=== PATIENT | male | born 1970 | race Caucasian/White ===

== ENCOUNTER 2017-06-25 06:25 | Day surgery (SDC) | payer OTHER ==
[2017-06-25] MEDS ORDERED: ATROPINE SULFATE 1 MG/10 ML SYR IVP ONE (06:27)
[2017-06-25] MEDS ORDERED: NS 1,000 ML IV ONE (06:27)
--- NOTE | 2017-06-25 06:45 | CPEKG ---
Heart Rate: 147 RR Interval: 408 QRSD Interval: 78 QT Interval: 304 QTC Interval: 476 QRS [place]: 21 T Wave [place]: 39 EKG Severity - ABNORMAL ECG - EKG Impression: ATRIAL FIBRILLATION WITH RAPID VENTRICULAR RESPONSE EKG Impression: VENTRICULAR BIGEMINY EKG Impression: BORDERLINE PROLONGED QT INTERVAL Electronically Signed By: Luis Cueva 25-Jun-2017 12:50:23
[2017-06-25 07:10] LABS: INR 1.14 (0.83-1.16); PROTIME(PATIENT) 14.8 SEC (12.0-15.0)
[2017-06-25] MEDS ORDERED: PROPOFOL 200 MG/20 ML VIAL ONE (07:54)
[2017-06-25] MEDS ORDERED: NALOXONE HCL 0.4 MG/ML INJ IVP PRN (08:03)
--- NOTE | 2017-06-25 08:04 | PDANEPAE ---
ANE History of Present Illness PELON + CV ANE Past Medical History - Cardiovascular History Hx Arrhythmias: Yes Hx Palpitations: Yes - Pulmonary History Hx COPD: No Hx Asthma/Reactive Airway Disease: No Hx Sleep Apnea: No ANE Review of Systems Review of Systems: - Exercise capacity Exercise capacity: >=4 METS ANE Patient History - Allergies Allergies/Adverse Reactions: naproxen Allergy (Severe, Verified 06/24/17 15:00) HIVES, PRUITIS - Home Medications Home Medications: Allopurinol 300 mg PO DAILY 06/25/17 [Last Taken 06/25/17 05:40] Eliquis 5 mg PO BID 06/25/17 [Last Taken 06/25/17 05:40] [place] 10-325 Tablet mg PO Q6 PRN 06/25/17 [Last Taken Unknown] Toprol Xl 25 mg PO DAILY 06/25/17 [Last Taken 06/25/17 05:40] - Smoking Hx Smoking Status: Former smoker ANE Labs/Vital Signs - Labs Result Diagrams: 06/25/17 06:46 - Vital Signs Height: 173 cm Weight: 96.2 kg ANE Physical Exam - Airway Neck exam: FROM Mallampati Score: Class 2 Mouth exam: normal dental/mouth exam - Pulmonary Pulmonary: clear to auscultation - Cardiovascular Cardiovascular: regular rate and rhythym - ASA Status ASA Status: II ANE Anesthesia Plan Anesthesia Plan: GA with mask
--- NOTE | 2017-06-25 08:06 | PDHPUP ---
History & Physical Update H&P update statement: This history and physical update is based on an assessment of the patient which was completed after admission or registration (within 24 hours), but prior to the surgery/procedure. H&P update: H&P reviewed & patient examined, no change in patient's condition since H&P completed, changes noted
--- NOTE | 2017-06-25 08:24 | POSTANESTH ---
Post Anesthetic Evaluation Cardiovascular Status: Normal, Stable Respiratory Status: Normal, Stable Level of Consciousness/Mental Status: Alert and Oriented Pain Control: Adequate, Prn Tx Ordered Nausea/Vomiting Control: Adequate, Prn Tx Ordered Complications Possibly Related to Anesthesia: None Noted
--- NOTE | 2017-06-25 08:30 | CPEKG ---
Heart Rate: 64 RR Interval: 938 P-R Interval: 160 QRSD Interval: 84 QT Interval: 424 QTC Interval: 438 P [place]: 65 QRS [place]: 24 T Wave [place]: 58 EKG Severity - BORDERLINE ECG - EKG Impression: SINUS RHYTHM EKG Impression: PROBABLE LEFT ATRIAL ABNORMALITY EKG Impression: ATRIAL FIBRILLATION IS NEW IN COMPARISON TO PRIOR ECG Electronically Signed By: Luis Cueva 25-Jun-2017 12:50:41
--- NOTE | 2017-06-25 08:36 | PDTEE1 ---
PELON Cardioversion Procedure Procedure: electrical cardioversion, transesophageal echo Indications: atrial fibrillation Consent: signed and in chart Anticoagulation: eliquis Procedural Details: After consents for anesthesia and PELON with possible cardioversion were acquired , the patient was placed in the left lateral position. Sedation was induced, and the PELON probe was placed without difficulty. Standard views were obtained. Preliminary report: LVEF was noted to be moderately suppressed (30-35%) with global hypokinesis No "smoke" was noted to the atria Mild dilation of the atria No thrombus to the left atrial appendage Mild to moderate MR was noted Mild TR Trace AI (trileaflet) Trace PI PELON probe was removed Atrial fibrillation with rates of 130-135 bpm noted Sedation status was reassessed A single, synchronized shock at 200J was performed with conversion to normal sinus rhythm 70-75 bpm Recovery without incident Follow up ECG in 1 week Follow up with cardiology in 3 weeks Strong recommendations for alcohol cessation (complete) Synchronized cardioversion attempt #1: 200J Results: normal sinus rhythm Conclusions: successful PELON cardioversion
--- NOTE | 2017-06-26 09:16 | ECHO ---
[email or web address] [place] [id number] Main: [phone] Fax: Transesophageal Echocardiography Name: JUSTIN MCCONNELL MR#: [id number] Study Date: 06/25/2017 Study Time: 08:01 AM Date of : 1970 Age: 46 year(s) Height: ( ) Weight: ( ) BSA: Gender: Male Examination: PELON Indication: Pre Cardioversion Image Quality: Contrast: Requested by: Luis Cueva Heart Rate: Rhythm: Atrial fibrillation BP: / Procedure Staff Car Unloader: Javi Juarez RDCS Reading Physician: Luis Cueva MD Requesting Provider: Conclusions: The EF is approx 30-35%, there is no MARTA thrombus. Mild to moderate MR. No TR, . Proceeded with successful elective DC cardioversion.. Measurements: Chambers Valvular Assessment AV/MV Valvular Assessment TV/PV Normal Normal Normal Name Value Range Name Value Range Name Value Range Additional Measurements: Findings: Exam Comments: The EF is approx 30-35%, there is no MARTA thrombus. Mild to moderate MR. No TR, . Proceeded with successful elective DC cardioversion.. l1n (No Signature Object) Patient: JUSTIN MCCONNELL Study Date: 06/25/2017 Page 1 of 1 08:01 AM [id number]
== END 2017-06-25 09:25 | disposition home or self-care (01) ==
LOC: FCATH 06:25
PROVIDERS: ATTEND Internal Medicine Cardiovascular Disease
PROC: 5A2204Z Restoration of Cardiac Rhythm, Single (ICD-10-PCS; principal; 2017-06-25)
DX: I48.91 Unspecified atrial fibrillation (principal); Z87.891 Personal history of nicotine dependence
CPT/HCPCS: J0461; J2704

== ENCOUNTER 2017-07-21 10:39 | Inpatient (IN) | payer OTHER ==
[2017-07-21 13:55] LABS: PLATELET COUNT 251 10^3/uL (150-400)
--- NOTE | 2017-07-21 13:57 | PDMN ---
Medical Necessity Medical necessity: [facility] [place] M505 afib- A-1 day: tikosyn loading - initiation of anitiarrhythmic drug therapy
--- NOTE | 2017-07-21 13:59 | CPEKG ---
Heart Rate: 111 RR Interval: 541 QRSD Interval: 84 QT Interval: 344 QTC Interval: 468 QRS [place]: 24 T Wave [place]: 44 EKG Severity - ABNORMAL ECG - EKG Impression: ATRIAL FIBRILLATION, V-RATE 67-115 EKG Impression: PRIOR ECG WITH REESTABLISHMENT OF NORMAL SINUS RHYTHM...ATRIAL FIBRILLATION HAS EKG Impression: RETURNED Electronically Signed By: Luis Cueva 21-Jul-2017 22:34:49
[2017-07-21 14:09] LABS: INR 1.03 (0.83-1.16); PROTIME(PATIENT) 13.7 SEC (12.0-15.0)
--- NOTE | 2017-07-21 14:39 | PDCARPN ---
Cardiology Progress Note Chief Complaint: Atrial Fibrillation- Assessment/Plan: Assessment: Atrial Fibrillation: Nolberto was seen in clinic 07/16/17 with remote history of PSVT 10 yrs ago by his report. He was found to be in A Fib 06/24/17 and was PELON/DCCV 06/25/17. At that time his LVEF was 33% w/ Mild to Mod MR, mild TR, and no MARTA clot. He did Cardiovert to NSR. He is admitted today for initiation of Tikosyn 500 mcg BID per Killian Fontanez MD. Today EKG shows A-Fib with rate 11, QTc 468. Dr Fontanez notified of admission. Plan: Tikosyn 500 mcg BID--Loading protocol. 07/21/17 14:41 Subjective: I feel good today. Reviewed/Discussed With: multidisciplinary team Objective: Vital Signs (8 Hrs) Temp Pulse Resp BP Pulse Ox 07/21/17 10:56 36.4 C 07/21/17 10:51 96 15 129/70 H 92 Intake/Output (24 Hrs) 07/20/17 07/21/17 07/22/17 05:59 05:59 05:59 Other: Weight 93.7 kg Result Diagrams: 07/21/17 11:50 07/21/17 11:50 - Physical Exam Cardiovascular: no murmurs, no rubs, irregularly irregular Peripheral Pulses: 2+: dorsalis-pedis (R), dorsalis-pedis (L) Respiratory: clear to auscultate bilat, no crackles, no wheezes Skin: warm, no edema Neurologic: AAOx3 Psychiatric: cooperative, interactive, anxious ICD10 Worksheet Patient Problems: Problems Problem Status Onset Atrial fibrillation Acute No evidence of atrial fibrillation or flutter Acute
[2017-07-21] MEDS: DOFETILIDE 0.5 MG CAP PO SCH (16:45)
[2017-07-21] MEDS: APIXABAN 5 MG TAB PO SCH (21:26)
[2017-07-22 04:59] LABS: INR 1.06 (0.83-1.16)
--- NOTE | 2017-07-22 08:47 | CPEKG ---
Heart Rate: 71 RR Interval: 845 P-R Interval: 176 QRSD Interval: 82 QT Interval: 436 QTC Interval: 474 P [place]: 20 QRS [place]: 31 T Wave [place]: 44 EKG Severity - NORMAL ECG - EKG Impression: SINUS RHYTHM Electronically Signed By: Rico Thompson 22-Jul-2017 17:29:12
[2017-07-22] MEDS: DOFETILIDE 0.5 MG CAP PO SCH ×2 (09:23→20:56)
[2017-07-22] MEDS: ALLOPURINOL 300 MG TAB PO SCH (09:24)
[2017-07-22] MEDS: LISINOPRIL 10 MG TAB PO SCH (09:24)
[2017-07-22] MEDS: FUROSEMIDE 20 MG TAB PO SCH (09:24)
[2017-07-22] MEDS: APIXABAN 5 MG TAB PO SCH ×2 (09:24→20:56)
--- NOTE | 2017-07-22 10:09 | ASMTCASEMG ---
Living Arrangements What is your living Answers: With Spouse arrangement? Who do you live with? Type Of Residence What kind of residence do Answers: House you live in? Discharge Plan Comments Coordination Status Comments Notes: CM spoke w/ TRISTON Powers regarding d/c POC. Pt is a 46 y/o man admitted for tikosyn loading and afib. Pt will most likely d/c independent when medically stable. No therapies ordered at this time. CM available for changes. Plan: Independent Date Signed: 07/22/2017 10:08 AM Electronically Signed By:BAIRON Hwoard
--- NOTE | 2017-07-22 11:22 | CPEKG ---
Heart Rate: 109 RR Interval: 550 QRSD Interval: 76 QT Interval: 328 QTC Interval: 442 QRS [place]: 27 T Wave [place]: 46 EKG Severity - ABNORMAL ECG - EKG Impression: ATRIAL FLUTTER, A-RATE 254 EKG Impression: VENTRICULAR PREMATURE COMPLEX EKG Impression: BORDERLINE T ABNORMALITIES, ANTERIOR LEADS EKG Impression: ATRIAL FLUTTER HAS REPLACED SINUS RHYTHM Electronically Signed By: Luis Cueva 22-Jul-2017 22:57:59
--- NOTE | 2017-07-22 16:14 | PDCARPN ---
Cardiology Progress Note Assessment/Plan: Assessment: Atrial Fibrillation: Nolberto was seen in clinic 07/16/17 with remote history of PSVT 10 yrs ago by his report. He was found to be in A Fib 06/24/17 and was PELON/DCCV 06/25/17. At that time his LVEF was 33% w/ Mild to Mod MR, mild TR, and no MARTA clot. He did Cardiovert to NSR. He is admitted today for initiation of Tikosyn 500 mcg BID per Killian Fontanez MD. Today EKG shows A-Fib with rate 11, QTc 468. Dr Fontanez notified of admission. Plan: Tikosyn 500 mcg BID--Loading protocol. 07/21/17 14:41 07/22/17 16:11 Atrial Fibrillation. Tolerating Tikosyn well. He has not experienced Dizziness or lightheadedness. Objective: Vital Signs (8 Hrs) Temp Pulse Resp BP Pulse Ox 07/22/17 15:20 36.6 C 81 16 102/67 91 L 07/22/17 11:29 36.4 C 72 18 107/87 H 94 07/22/17 09:21 71 18 105/72 95 Intake/Output (24 Hrs) 07/21/17 07/22/17 07/23/17 05:59 05:59 05:59 Intake Total 1200 Output Total 1600 Balance -400 Intake: Oral (ml) 1200 Output: Urine (ml) 1600 Toilet 1600 Other: Weight 93.7 kg Intake Quantity Yes Sufficient Number of Voids Toilet 2 Result Diagrams: 07/21/17 11:50 07/22/17 04:13 ICD10 Worksheet Patient Problems: Problems Problem Status Onset Atrial fibrillation Acute No evidence of atrial fibrillation or flutter Acute
[2017-07-22] MEDS ORDERED: HYDROCODONE/APAP 5/325 TAB PO PRN (21:11)
--- NOTE | 2017-07-22 23:16 | CPEKG ---
Heart Rate: 71 RR Interval: 845 P-R Interval: 180 QRSD Interval: 74 QT Interval: 432 QTC Interval: 470 P [place]: 28 QRS [place]: 33 T Wave [place]: 77 EKG Severity - BORDERLINE ECG - EKG Impression: SINUS RHYTHM EKG Impression: BORDERLINE T ABNORMALITIES, ANT-LAT LEADS Electronically Signed By: Rico Thompson 24-Jul-2017 19:12:03
[2017-07-23] MEDS ORDERED: DOFETILIDE 0.5 MG CAP PO SCH
[2017-07-23] MEDS: FUROSEMIDE 20 MG TAB PO SCH (09:33)
[2017-07-23] MEDS: LISINOPRIL 10 MG TAB PO SCH (09:34)
[2017-07-23] MEDS: DOFETILIDE 0.5 MG CAP PO SCH (09:34)
[2017-07-23] MEDS: APIXABAN 5 MG TAB PO SCH (09:34)
[2017-07-23] MEDS: ALLOPURINOL 300 MG TAB PO SCH (09:34)
--- NOTE | 2017-07-23 11:30 | CPEKG ---
Heart Rate: 71 RR Interval: 845 P-R Interval: 176 QRSD Interval: 78 QT Interval: 428 QTC Interval: 466 P [place]: 38 QRS [place]: 23 T Wave [place]: 64 EKG Severity - ABNORMAL ECG - EKG Impression: SINUS RHYTHM EKG Impression: MULTIPLE VENTRICULAR PREMATURE COMPLEXES EKG Impression: PROBABLE LEFT ATRIAL ABNORMALITY EKG Impression: BORDERLINE T WAVE ABNORMALITIES Electronically Signed By: Rico Thompson 24-Jul-2017 19:11:58
[2017-07-23 11:50] VITALS: BP 119/87
--- NOTE | 2017-07-23 17:15 | GDS ---
[f rep st] DISCHARGE SUMMARY ADMIT DIAGNOSES: 1. Atrial fibrillation. 2. Tikosyn loading. DISCHARGE DIAGNOSES: 1. Atrial fibrillation, converted to regular sinus rhythm. 2. Successful Tikosyn load. COURSE OF HOSPITALIZATION: This gentleman was seen in the EP Clinic by Dr. Killian Fontanez on July 16, 2017. He had a history of remote PSVT 10 years ago. He was found in atrial fibrillation of unknown duration on June 24, 2017. He was PELON cardioverted on June 25, 2017 showing an LVEF of 33%. Ther e was no MARTA clot. He was cardioverted to normal sinus rhythm at that time. He does have a history of moderate ETOH use. On admission, he is in atrial fibrillation, today with a well controlled rate. Tikosyn 500 mcg twice daily was initiated with good tolerance. His EKGs remained stable. He had n o other problems during this hospital stay. At this time, he currently is stable for discharge. PHYSICAL EXAMINATION: VITAL SIGNS: On day of discharge, blood pressure 119/87, heart rate 69, oxyge n saturation 91%. EKG showed a normal sinus rhythm. His heart rate is regular. LUNGS: Clear to au scultation. He has no peripheral edema. MEDICATIONS: He will go home on Eliquis 5 mg twice daily; allopurinol 300 mg daily; lisinopril 10 mg daily; Lasix 20 mg daily; Tikosyn 0.5 mg twice daily, 12 hours apart. His metoprolol was discontinu ed on admission. He will resume Vicodin 5/300 mg 1 tablet every 6 hours as needed for pain. This wa s prescribed by an outside prescriber. ALLERGIES: He has allergies to naproxen. DISCHARGE PLAN: He will follow up with Dr. Killian Fontanez on August 14. He knows to call the office shou ld he have any problems prior to that appointment. He was given a 1-week supply of Tikosyn prior to discharge from the hospital. A prescription for his Tikosyn was additionally given. At this time, mary best currently is stable for discharge. /[id number]/MODL
== END 2017-07-23 12:06 | disposition home or self-care (01) | DRG 310 ==
LOC: F2W 10:39
PROVIDERS: ADMIT Internal Medicine Cardiovascular Disease; ATTEND Internal Medicine Cardiovascular Disease
PROC: 3E033RZ Introduction of Antiarrhythmic into Peripheral Vein, Percutaneous Approach (ICD-10-PCS; principal; 2017-07-21)
DX: I48.91 Unspecified atrial fibrillation (principal); R53.83 Other fatigue; R06.02 Shortness of breath

== ENCOUNTER 2017-10-07 07:05 | Day surgery (SDC) | payer OTHER ==
[2017-10-07] MEDS ORDERED: fentaNYL 100 MCG/2 ML INJ IVP ONE (07:07)
[2017-10-07] MEDS ORDERED: ATROPINE SULFATE 1 MG/10 ML SYR IVP ONE (07:07)
[2017-10-07] MEDS ORDERED: MIDAZOLAM 2 MG/2 ML VIAL IVP ONE (07:07)
[2017-10-07] MEDS ORDERED: NS 500 ML IV ONE (07:07)
--- NOTE | 2017-10-07 07:19 | CPEKG ---
Heart Rate: 63 RR Interval: 952 QRSD Interval: 86 QT Interval: 388 QTC Interval: 398 QRS [place]: 13 T Wave [place]: 260 EKG Severity - ABNORMAL ECG - EKG Impression: A-FLUTTER W/ PREDOM 4:1 AV BLOCK, A-RATE 254 EKG Impression: REPOL ABNRM SUGGESTS ISCHEMIA, DIFFUSE LEADS Electronically Signed By: José Tam 07-Oct-2017 21:23:37
[2017-10-07 07:51] LABS: INR 1.05 (0.83-1.16); PROTIME(PATIENT) 13.9 SEC (12.0-15.0)
--- NOTE | 2017-10-07 08:04 | PDANEPAE ---
ANE History of Present Illness here for CV ANE Past Medical History - Cardiovascular History Hx Arrhythmias: Yes Hx Palpitations: Yes - Pulmonary History Hx COPD: No Hx Asthma/Reactive Airway Disease: No Hx Oxygen in Use at Home: No Hx Sleep Apnea: No - Endocrine History Hx Diabetes: No - Chronic Pain History Chronic Pain: Yes ANE Review of Systems Review of systems is: negative Review of Systems: - Exercise capacity Exercise capacity: >=4 METS ANE Patient History - Allergies Allergies/Adverse Reactions: naproxen Allergy (Severe, Verified 06/24/17 15:00) IGNACIA HANSON - Home Medications Home medications: home medication list seen and reviewed Home Medications: Allopurinol [Allopurinol 300 MG (RX)] 300 mg PO DAILY 06/25/17 [Last Taken 10/07] Apixaban [Eliquis] 5 mg PO BID 06/25/17 [Last Taken 10/07/17 06:45] Hydrocodone/Acetaminophen [Vicodin 5-300 mg Tablet] 1 each PO Q6HRS PRN [Last Taken 07/21/17 10:00] Furosemide [Lasix 20 MG (*)] 20 mg PO DAILY 07/21/17 [Last Taken 10/06/17] Lisinopril [Zestril 10 mg (*)] 10 mg PO DAILY 07/21/17 [Last Taken 10/07/17] Amiodarone HCl 200 mg PO DAILY 10/07/17 [Last Taken 10/07/17] Metoprolol Succinate [Toprol Xl] 25 mg PO DAILY 10/07/17 [Last Taken 10/06/17 20 :00] - NPO status NPO Status: no food or drink >8 hours - Smoking Hx Smoking Status: Former smoker ANE Labs/Vital Signs - Labs Result Diagrams: 10/07/17 07:30 - Vital Signs Height: 172.72 cm Weight: 97.522 kg ANE Physical Exam - Airway Neck exam: FROM Mallampati Score: Class 1 - Pulmonary Pulmonary: no respiratory distress - Cardiovascular Cardiovascular: regular rate and rhythym - ASA Status ASA Status: II ANE Anesthesia Plan Anesthesia Plan: GA with mask
[2017-10-07] MEDS ORDERED: PROPOFOL 200 MG/20 ML VIAL ONE (08:11)
--- NOTE | 2017-10-07 08:23 | PDHPUP ---
History & Physical Update H&P update statement: This history and physical update is based on an assessment of the patient which was completed after admission or registration (within 24 hours), but prior to the surgery/procedure. H&P update: H&P reviewed & patient examined, no change in patient's condition since H&P completed
--- NOTE | 2017-10-07 08:40 | CPEKG ---
Heart Rate: 60 RR Interval: 1000 P-R Interval: 188 QRSD Interval: 86 QT Interval: 456 QTC Interval: 456 P [place]: 64 QRS [place]: 16 T Wave [place]: 39 EKG Severity - NORMAL ECG - EKG Impression: SINUS RHYTHM Electronically Signed By: José Tam 07-Oct-2017 21:23:25
--- NOTE | 2017-10-07 16:48 | POSTANESTH ---
Post Anesthetic Evaluation Cardiovascular Status: Normal, Stable Respiratory Status: Normal, Stable Level of Consciousness/Mental Status: Can Participate in Eval Pain Control: Adequate, Prn Tx Ordered Nausea/Vomiting Control: Adequate, Prn Tx Ordered Complications Possibly Related to Anesthesia: None Noted
--- NOTE | 2017-10-08 17:22 | PDCARD ---
Cardioversion Procedure Procedure: electrical cardioversion Indications: atrial fibrillation Consent: signed and in chart Anticoagulation: eliquis Procedural Details: Pads were placed in anterior-posterior position. Synchronized cardioversion attempt #1: 200J Results: normal sinus rhythm Conclusions: successful cardioversion Patient Problems: Problems Problem Status Onset Atrial fibrillation Acute No evidence of atrial fibrillation or flutter Acute
== END 2017-10-07 17:45 | disposition home or self-care (01) ==
LOC: FCATH 07:05
PROVIDERS: ATTEND Internal Medicine Cardiovascular Disease
PROC: 5A2204Z Restoration of Cardiac Rhythm, Single (ICD-10-PCS; principal; 2017-10-07)
DX: I48.91 Unspecified atrial fibrillation (principal); I50.22 Chronic systolic (congestive) heart failure; Z79.01 Long term (current) use of anticoagulants; Z87.891 Personal history of nicotine dependence; Z82.3 Family history of stroke; Z82.49 Family history of ischemic heart disease and other diseases of the circulatory system
CPT/HCPCS: J0461; J2704

== ENCOUNTER → 2017-12-01 | Outpatient (CLI) | payer OTHER ==
[~2017-12-01] MED LIST: IOPAMIDOL (ISOVUE 370) 100 ML BTL IV ONE
== END ==
LOC: FIMAGING 10:49
PROVIDERS: ATTEND Internal Medicine Cardiovascular Disease
DX: I48.91 Unspecified atrial fibrillation (principal)
CPT/HCPCS: Q9967

== ENCOUNTER 2017-12-06 11:10 | Observation (INO) | payer OTHER ==
[2017-12-06] MEDS ORDERED: NS 1,000 ML IV ONE (11:17)
[2017-12-06 11:50] LABS: PLATELET COUNT 202 10^3/uL (150-400)
[2017-12-06 12:01] LABS: PROTIME(PATIENT) 13.4 SEC (12.0-15.0)
--- NOTE | 2017-12-06 13:27 | PDGENHP ---
History & Physical Chief Complaint: symptomatic afib and afl, CMP Relevant Physical Exam: s1s2 rrr tachycardic. cta. ao3 Cardiorespiratory Assessment: for AFIB and AFL ablation
[2017-12-06] MEDS ORDERED: HEPARIN/DEXTROSE 25,000 UNIT/500 ML BAG ONE (13:38)
[2017-12-06] MEDS ORDERED: LIDOCAINE 1% 300 MG/30 ML SDV ONE (13:39)
[2017-12-06] MEDS ORDERED: BUPIVACAINE 0.75% 10 ML SDV ONE (13:39)
[2017-12-06] MEDS ORDERED: IOPAMIDOL (ISOVUE-300) 100 ML BTL ONE (13:39)
[2017-12-06] MEDS ORDERED: HEPARIN 10,000 UNIT/10 ML MDV (1,000 UNIT/ML) ONE (13:39)
[2017-12-06] MEDS ORDERED: MIDAZOLAM 2 MG/2 ML VIAL IVP ONE (13:51)
[2017-12-06] MEDS ORDERED: MIDAZOLAM 2 MG/2 ML VIAL ONE (13:52)
--- NOTE | 2017-12-06 13:52 | PDANEPAE ---
ANE Past Medical History - Cardiovascular History Hx Arrhythmias: Yes Hx Palpitations: Yes - Pulmonary History Hx COPD: No Hx Asthma/Reactive Airway Disease: No Hx Oxygen in Use at Home: No Hx Sleep Apnea: No - Endocrine History Hx Diabetes: No Obesity: moderate - Chronic Pain History Chronic Pain: Yes ANE Review of Systems Review of Systems: ANE Patient History - Allergies Allergies/Adverse Reactions: naproxen Allergy (Severe, Verified 06/24/17 15:00) HIVES, PRUITIS - Home Medications Home medications: home medication list seen and reviewed Home Medications: Allopurinol [Allopurinol 300 MG (RX)] 300 mg PO DAILY 06/25/17 [Last Taken 10/07] Apixaban [Eliquis] 5 mg PO BID 06/25/17 [Last Taken 10/07/17 06:45] Furosemide [Lasix 20 MG (*)] 20 mg PO DAILY 07/21/17 [Last Taken 10/06/17] Lisinopril [Zestril 10 mg (*)] 10 mg PO DAILY 07/21/17 [Last Taken 10/07/17] Amiodarone HCl 200 mg PO DAILY 10/07/17 [Last Taken 10/07/17] Metoprolol Succinate [Toprol Xl] 25 mg PO DAILY 10/07/17 [Last Taken 10/06/17 20 :00] HYDROcodone/APAP 10/325 [[place] 10/325 (*)] 1 tab PO BID PRN 12/03/17 [Last Taken Unknown] - NPO status NPO Status: no food or drink >8 hours - Anes Hx Anes Hx: no prior problems - Smoking Hx Smoking Status: Former smoker ANE Labs/Vital Signs - Labs Result Diagrams: 12/06/17 11:30 12/06/17 11:30 - Vital Signs Height: 172.72 cm Weight: 97.976 kg ANE Physical Exam - Airway Neck exam: FROM Mallampati Score: Class 2 Mouth exam: normal dental/mouth exam - Pulmonary Pulmonary: no respiratory distress, no rales or rhonchi, clear to auscultation - Cardiovascular Cardiovascular: tachycardia - ASA Status ASA Status: III ANE Anesthesia Plan Anesthesia Plan: general endotracheal anesthesia
[2017-12-06] MEDS ORDERED: PROPOFOL 200 MG/20 ML VIAL ONE (13:59)
[2017-12-06] MEDS ORDERED: fentaNYL 250 MCG/5 ML INJ ONE (13:59)
[2017-12-06] MEDS ORDERED: LIDOCAINE 2% JELLY 5 ML TUBE ONE (14:00)
[2017-12-06] MEDS ORDERED: ONDANSETRON 4 MG/2 ML VIAL ONE (14:00)
[2017-12-06] MEDS ORDERED: DEXAMETHASONE 4 MG/ML VIAL ONE ×2 (14:00→14:06)
[2017-12-06] MEDS ORDERED: ROCURONIUM 50 MG/5 ML VIAL ONE (14:00)
[2017-12-06] MEDS ORDERED: PROTAMINE SULFATE 50 MG/5 ML VIAL IVP ONE (16:27)
[2017-12-06] MEDS ORDERED: NALOXONE HCL 0.4 MG/ML INJ IVP PRN (16:35)
[2017-12-06] MEDS ORDERED: fentaNYL 100 MCG/2 ML INJ IVP PRN (16:35)
[2017-12-06] MEDS ORDERED: ONDANSETRON 4 MG/2 ML VIAL IVP PRN (16:35)
[2017-12-06] MEDS ORDERED: PROMETHAZINE HCL 25 MG/ML INJ IVP PRN (16:35)
[2017-12-06] MEDS ORDERED: DIAZEPAM 5 MG/ML 1 ML SYR IVP PRN (16:35)
[2017-12-06] MEDS ORDERED: OXYCODONE/APAP 5/325 TAB PO PRN (16:35)
[2017-12-06] MEDS ORDERED: ACETAMINOPHEN 500 MG TAB PO PRN (16:35)
[2017-12-06] MEDS ORDERED: HYDROCODONE/APAP 5/325 TAB PO PRN (16:35)
[2017-12-06] MEDS ORDERED: NS 500 ML IV PRN (16:35)
--- NOTE | 2017-12-06 16:51 | EPPROC ---
Electrophysiology Procedure Note: ELECTROPHYSIOLOGIC STUDY AND BALLOON-CATHETER MEDIATED CRYOABLATION FOR PAROXYSMAL ATRIAL FIBRILLATION AND RF ABLATION FOR ATRIAL FLUTTER Procedures performed: 10743-76 EP evaluation with RA/RV/LA pace/record, with arrhythmia induction 65283-05 EP evaluation with RA/RV pace record, insert/reposition catheter, with arrhythmia induction 35980 Atrial fibrillation ablation Second arrhythmia Intracardiac echocardiogram Transseptal puncture Fluoroscopy INDICATION: Paroxysmal atrial fibrillation Atrial flutter Cardiomyopathy PROCEDURE: The patient arrived in the Electrophysiology Laboratory in the fasting state. The right groin, left groin and right infraclavicular area were prepped and draped in the usual sterile fashion. Anesthesiologist administered general anesthesia Dr. Khushboo Sinclair . All catheters were placed percutaneously using the Seldinger technique and advanced into position under fluoroscopic guidance. One #7 [place] deflectable octapolar electrode catheter was placed in the His-bundle position via the left femoral vein (2mm spacing, IVC electrode for unipolar recordings). This catheter was placed in the coronary sinus after transseptal puncture and later placed in the SVC-R subclavian vein junction to pace the right phrenic nerve during right pulmonary vein ablation. One #8 [place] AcuNaV ultrasound catheter was placed in the left femoral vein and advanced into the right atrium. Programmed stimulation was performed from the right atrium, left atrium (CS) and right ventricle. Intracardiac echo evaluation of the left atrium and pulmonary veins was performed. Baseline ACT was drawn and heparin bolus was administered and heparin drip was started prior to transseptal puncture. ACT was checked every 15 minutes and maintained in the range of 350-400 seconds. On arrival to EP lab patient was in clockwise atrial flutter. Halo catheter was placed along CT isthmus and TA, entrainment mapping confirmed atrial flutter. One 14Fr short sheath was placed in the right femoral vein. One 8Fr SL1 sheath was advanced into the right atrium via the 14Fr short sheath. Transseptal puncture was performed under intracardiac ultrasound, fluoroscopic and hemodynamic guidance placing the sheath into the left atrium. [place] RF needle ( C0 curve) was used. The mean left atrial pressure was 11 mmHg. SL1 sheath was exchanged for a EXFOtronic Flexcath sheath using an [place] guide wire. A 28 mm Cryoballoon catheter with a 20 mm Achieve catheter was placed via the sheath into the left atrium. Intracardiac ultrasound and PV angiograms were used to assist in placing the mapping catheter at the antrum of the pulmonary veins. All pulmonary veins were isolated successfully using cryoballoon ablation using freeze/thaw/freeze cycles at 2-3-minute intervals, with good [id number]-gjdbbs of isolation. Coumadin ridge/Ligament of [place] region was ablated. Pre and post pulmonary vein recordings were measured on the spiral Achieve catheter to ensure complete pulmonary vein isolation. During the right-sided ablation, phrenic nerve pacing was performed to assess the phrenic nerve strength ( manually and with ICE visualization of liver movement during phrenic capture) and the phrenic nerve was intact throughout the right-sided ablation and at the end of the procedure. Esophagus was closest to LIPV and RIPV. An esophageal temperature probe (12 electrode, Circa) was placed by the anesthesiologist at the beginning of the procedure. Esophageal temperature was monitored continuously and cryoablation was interrupted if esophageal temperature was <15 C. Cryoapplications 8 total cryoablation time 1192 s. Sheath was withdrawn into RA, changed to Mobi sheath. 8 mm non irrigated catheter was placed into the RA and ablation performed at the cavotricupsid isthmus. Bidirectional conduction block was achieved. Septal to lateral conduction time 205 s. ICE imaging post ablation was consistent with pre ablation imaging with no changes noted, moreover there was no left atrial/left ventricular thrombus and no pericardial effusion. The catheters were withdrawn. Protamine was given. The sheaths were removed and subcutaneous pursestring suture and manual pressure was used for hemostasis. The patient was recovered from anesthesia. There were no complications. The patient was arousable and moving all four extremities at the end of the procedure. CONCLUSIONS: 1. Paroxysmal atrial fibrillation. 2. Successful pulmonary vein re- isolation procedure (left and right pulmonary vein antrum) using cryoballoon ablation. 3. Atrial flutter. Successful ablation with bidirectional block achieved across cavotricupsid isthmus. Patient Problems: Problems Problem Status Onset Atrial fibrillation Acute No evidence of atrial fibrillation or flutter Acute
--- NOTE | 2017-12-06 17:09 | POSTANESTH ---
Post Anesthetic Evaluation Cardiovascular Status: Normal, Stable Respiratory Status: Normal, Stable, Similar to Pre-op Cond. Level of Consciousness/Mental Status: Can Participate in Eval, Alert and Oriented Pain Control: Adequate, Prn Tx Ordered Nausea/Vomiting Control: Adequate, Prn Tx Ordered Complications Possibly Related to Anesthesia: None Noted
[2017-12-06] MEDS ORDERED: HYDROCODONE/APAP 10/325 TAB PO PRN (18:12)
[2017-12-06] MEDS: APIXABAN 5 MG TAB PO SCH (20:48)
[2017-12-07] MEDS: HYDROCODONE/APAP 10/325 TAB PO PRN ×2 (01:12→08:51)
[2017-12-07 03:31] LABS: PLATELET COUNT 190 10^3/uL (150-400)
--- NOTE | 2017-12-07 08:39 | CPEKG ---
Test Reason : OPEN Blood Pressure : / mmHG Vent. Rate : 129 BPM Atrial Rate : 129 BPM P-R Int : 135 ms QRS Dur : 080 ms QT Int : 337 ms P-R-T Axes : 261 021 029 degrees QTc Int : 494 ms Atrial flutter with predominant 2:[address] depr, consider ischemia, inferior leads Borderline prolonged QT interval Confirmed by Isiah Ferrara ([id number]) on 12/07/2017 8:39:31 AM Referred By: Confirmed By:Isiah Ferrara
--- NOTE | 2017-12-07 08:40 | CPEKG ---
Test Reason : OPEN Blood Pressure : / mmHG Vent. Rate : 072 BPM Atrial Rate : 072 BPM P-R Int : 164 ms QRS Dur : 088 ms QT Int : 546 ms P-R-T Axes : 076 039 095 degrees QTc Int : 598 ms Sinus rhythm Probable left atrial enlargement Minimal ST depression, lateral leads Prolonged QT interval Confirmed by Isiah Ferrara ([id number]) on 12/07/2017 8:40:17 AM Referred By: Confirmed By:Isiah Ferrara
[2017-12-07] MEDS: APIXABAN 5 MG TAB PO SCH (08:54)
[2017-12-07] MEDS ORDERED: LISINOPRIL 10 MG TAB PO SCH (09:00)
[2017-12-07] MEDS ORDERED: METOPROLOL SUCCINATE XR 25 MG TAB PO SCH (09:00)
[2017-12-07] MEDS ORDERED: FUROSEMIDE 20 MG TAB PO SCH (09:00)
[2017-12-07] MEDS ORDERED: ALLOPURINOL 300 MG TAB PO SCH (09:00)
[2017-12-07 10:26] VITALS: BP 119/76
--- NOTE | 2017-12-07 11:45 | ECHO ---
[email or web address] [address] [address] Main: [phone] Fax: Transthoracic Echocardiogram Name: JUSTIN MCCONNELL MR#: [id number] Study Date: 12/07/2017 Study Time: 10:21 AM Date of : 1970 Age: 47 year(s) Height: 172.7 cm (68 in.) Weight: 97.98 kg (216 lb.) BSA: 2.11 m2 Gender: Male Examination: Echo Indication: F/U Post EP Study Image Quality: Adequate Contrast: Requested by: Rico Thompson BP: 119 mmHg/61 mmHg Heart Rate: Rhythm: Indication: F/U Post EP Study Procedure Staff Detention Officer: Luz Barry RDCS Reading Physician: Rico Thompson MD Requesting Provider: Conclusions: Normal global systolic LV function. EF is 57 %. Mild mitral valve regurgitation is present. Measurements: Chambers Valvular Assessment AV/MV Valvular Assessment TV/PV Normal Normal Normal Name Value Range Name Value Range Name Value Range Ao Brittani (2D): 2.8 cm (1.4 cm-2.6 AV Vmax: 1.10 m/s (1 m/s-1.7 TR Vmax: 2.79 mm/s ( - ) cm) m/s) TR PGmax: 31 mmHg ( - ) IVSd (2D): 1.1 cm (0.6 cm-1.1 AV maxP mmHg ( - ) syst. PAP: 36 mmHg ( - ) cm) AV meanP mmHg ( - ) PV Vmax: 1.03 m/s (0.6 m/s-0.9 LVDd (2D): 4.4 cm (4.2 cm-5.9 SOURAV (VTI): 2.1 cm ( - ) m/s) cm) MV E Vmax: 1.01 m/s ( - ) PV PGmax: 4 mmHg ( - ) LVDs (2D): 2.9 cm (2.1 cm-4 MV A Vmax: 0.29 m/s ( - ) cm) MV E/A: 3.48 ( - ) LVPWd (2D): 1.1 cm (0.6 cm-1 cm) MV PHT: 0.049 s ( - ) LVOTd 2.1 cm 2.1 cm mm MVA (PHT): 4.5 s ( - ) LVEF (BP): 57 % (>=55 %) RVDd(2D): 3.8 cm (1.9 cm-3.8 cmmm) Continued Measurements: Chambers Valvular Assessment AV/MV Valvular Assessment TV/PV Name Value Name Value Name Value LADs: 3.8 cm MV DecTime: 155 m/s CVP (est.): 5 mmHg LADs Lon.4 cm MV E' Septal: 0.09 m/s LA Area: 17.6 cm2 MV E/E' Septal: 11.10 Patient: JUSTIN MCCONNELL Study Date: 12/07/2017 Page 1 of 2 10:21 AM RA Area: 12.6 cm2 MV E/E' Lateral: 8.80 Additional Vessels Name Value Ao Ascendin.9 cm Inferior Vena Cava: 1.5 cm Findings: Left Ventricle: Normal size left ventricle. No LV hypertrophy. Normal global systolic LV function. EF is 57 %. No regional wall motion abnormality. DIASTOLIC FUNCTION APPEARS NORMAL BASED ON CRITERIA. Right Ventricle: Normal size right ventricle. Normal RV function. Left Atrium: The left atrium is normal in size. Right Atrium: The right atrium is normal in size. Mitral Valve: The mitral valve is normal in appearance and function. Mild mitral valve regurgitation is present. No mitral stenosis is present. Aortic Valve: The aortic valve is normal in appearance and function. Trivial aortic valve regurgitation. No aortic valve stenosis is present. Tricuspid Valve: The tricuspid valve is normal in appearance and function. The pulmonary artery pressure is normal. Right ventricular systolic pressure measures 36mmHg. Pulmonic Valve: The pulmonic valve is normal in appearance and function. There is no pulmonic regurgitation seen. Aorta: The aorta is normal. Normal size aortic root measuring 2.8 cm. Normal size ascending aorta measuring 2.9 cm. IVC: The IVC is normal sized. Pericardium: No pericardial effusion. No pleural effusion. (No Signature Object) Patient: JUSTIN MCCONNELL Study Date: 12/07/2017 Page 2 of 2 10:21 AM [id number]
--- NOTE | 2017-12-07 18:15 | GDS ---
ADMIT DIAGNOSES: 1. Atrial fibrillation. 2. Atrial flutter. 3. Planned electrophysiology study with ablation. DISCHARGE DIAGNOSES: 1. Status post successful atrial fibrillation and atrial flutter ablation. 2. Atrial fibrillation. 3. Atrial flutter. COURSE OF HOSPITALIZATION: This gentleman has been seen in clinic for management of atrial fib and a trial flutter. He has been tried on dofetilide and amiodarone and failed both drugs in managing his atrial fib flutter. It was decided to consider ablation therapy. This was discussed at length by Dr Shady Thompson with [facility]. The risks and benefits were reviewed with the understanding that ablation is not a cure, but a treatment. He fully understands and desired to proceed with ablation therapy. He was taken to the EP lab by Dr. Rico Thompson on December 06, 2017, where he was able to isolate and ablate both atrial fib and flutter with no complications. He then went to PCU overflow for overnight observation where he has done well. He has had no breakthrough episodes of atrial fibrillation or a trial flutter. He has not felt palpitations. He generally is feeling very well. Groin sutures were removed without any problems. He has been up ambulating. At this time he currently is stable for d ischarge. MEDICATIONS: He will go home on Eliquis 5 mg twice daily, allopurinol 300 mg daily. Zestril 10 mg d aily. Lasix 20 mg daily. Amiodarone has been discontinued. Metoprolol succinate 25 mg daily. Norc o 10/325 one tab every 6 hours as needed. Electrophysiology study on 12/06/2017. INDICATION: 1. Paroxysmal atrial flutter and atrial fibrillation. 2. Cardiomyopathy. CONCLUSION: 1. Paroxysmal atrial fibrillation. 2. Successful pulmonary vein re isolation procedure, left and right pulmonary vein antrum using cryo balloon ablation. 3. Atrial flutter. Successful ablation of bidirectional block achieved across cavotricuspid isthmus . There were no complications. PHYSICAL EXAMINATION: VITAL SIGNS: Exam on day of discharge, blood pressure 119/76, heart rate 88 an d regular, oxygen saturation 95% on room air. CARDIAC: Rhythm normal sinus rhythm, heart rate regul ar. No murmurs, rubs, gallops. LUNGS: Sounds are clear to auscultation. No wheezes, rales, or rhon chi. No peripheral edema. Peripheral pulses 2+ bilaterally. Bilateral groin sites intact suture re moved with no complications. There is minimal redness and ecchymosis at the groin sites. DISCHARGE PLAN: Groin site precautions were reviewed with him, both verbally and written instruction s were provided. Groin precautions for 7 days. No lifting, pushing, pulling greater than 10 pounds. Should site bleed, hold firm constant pressure. If not stopping, continue to hold pressure and go to the nearest emergency room. Follow up with Dr. Thompson in 3-4 weeks. Call [facility] for any concerns or questions and ask for Dr. Thompson's nurse, either Mellissa or emily Bermudez fanta #[phone]. He is stable for discharge. /[id number]/MODL
--- NOTE | 2017-12-09 08:36 | CPEKG ---
Test Reason : OPEN Blood Pressure : / mmHG Vent. Rate : 069 BPM Atrial Rate : 069 BPM P-R Int : 175 ms QRS Dur : 090 ms QT Int : 443 ms P-R-T Axes : 068 032 053 degrees QTc Int : 475 ms Sinus rhythm Confirmed by Isiah Ferrara ([id number]) on 12/09/2017 8:36:08 AM Referred By: Confirmed By:Isiah Ferrara
== END 2017-12-07 13:00 | disposition home or self-care (01) ==
LOC: FCATH 11:10 → F2N 16:40
PROVIDERS: ADMIT Internal Medicine Cardiovascular Disease; ATTEND Internal Medicine Cardiovascular Disease
DX: I48.0 Paroxysmal atrial fibrillation (principal); I48.92 Unspecified atrial flutter; I42.9 Cardiomyopathy, unspecified; Z23 Encounter for immunization
CPT/HCPCS: 90471; 92960; 93005; 93306; 93312; 93613; 93655; 93656; 93662; C1893; G0378; C1730; C1731; C1732; C1733; C1759; C1766; C1769; G0008; J1100; J1644; J2250; J2405; J2704; J2720; J3010; Q9967